=== PATIENT | male | born 1960 | race Caucasian/White ===

== ENCOUNTER 2020-01-08 10:07 | Emergency (ER) | payer OTHER, SELFPAY ==
--- NOTE | ~2020-01-08 | XR_ITS ---
EXAMINATION: XR hand RT 2V DATE: 01/08/2020 11:24 INDICATION: Right hand laceration. Foreign body. TECHNIQUE: 2 views of right hand were obtained. COMPARISON: None. FINDINGS: Bone alignment is normal. No fracture. There is mild osteoarthritis of first carpometacarpa l joint, first and second metacarpophalangeal joints, and most of the interphalangeal joints. There i s moderate osteoarthritis of second distal interphalangeal joint. No radiopaque foreign body. IMPRESSION: 1. No radiopaque foreign body. 2. Polyarticular osteoarthritis. Reviewed, dictated and finalized at location A.
[2020-01-08 10:09] VITALS: BP 138/91; PULSE 82; RESP 18; TEMP 36.8; O2SAT 95
--- NOTE | 2020-01-08 11:09 | ED.GENADULT ---
HPI - General Adult General Chief complaint: Wound/Laceration <VIMAL Crandall Last Filed: 01/08/20 20:17> Stated complaint: hand lac <VIMAL Crandall Last Filed: 01/08/20 20:17> Time Seen by Provider: 01/08/20 11:08 <VIMAL Crandall Last Filed: 01/08/20 20:17> Source: patient and family <VIMAL Crandall Last Filed: 01/08/20 20:17> Limitations: no limitations <VIMAL Crandall Last Filed: 01/08/20 20:17> History of Present Illness HPI narrative: Patient is here for repair of the laceration to his right hand. He was working with some windowpane glass that broke in the trash and cut a very straight laceration through his glove and through the back of his hand. Bleeding is stopped, he is not on any blood thinners. His last tetanus was 3 years ago. He has full range of motion of his fingers. <VIMAL Crandall Last Filed: 01/08/20 20:17> Onset (ago): minute(s) <VIMAL Crandall Last Filed: 01/08/20 20:17> Location: right (right hand) <VIMAL Crandall Last Filed: 01/08/20 20:17> Associated symptoms: denies other symptoms <VIMAL Crandall Last Filed: 01/08/20 20:17> Related Data Home medications: Home Medications Medication Instructions Recorded Confirmed amoxicillin-pot clavulanate 1 tablet PO BID 01/08/20 01/08/20 omega-3 fatty acids-fish oil 1 cap PO DAILY 01/08/20 01/08/20 <VIMAL Crandall Last Filed: 01/08/20 20:17> Allergies/adverse reactions: Allergies Allergy/AdvReac Type Severity Reaction Status Date / Time No Known Allergies Allergy Verified 01/08/20 10:21 <VIMAL Crandall Last Filed: 01/08/20 20:17> Review of Systems Review of Systems: All systems reviewed & are unremarkable except as noted in HPI and below (on Amoxicillin for sinus infection) <Jessica Duque PA-C - Last Filed: 01/08/20 20:17> [facility] Social History Social History: Social History (Updated 01/08/20 @ 11:20 by Jessica Duque PA-C) Smoking status: Never smoker <Jessica Duque PA-C - Last Filed: 01/08/20 20:17> Exam Const: General: no acute distress and alert <Jessica Duque PA-C - Last Filed: 01/08/20 20:17> Orientation/consciousness: patient oriented x3 <Jessica Duque PA-C - Last Filed: 01/08/20 20:17> HENMT: Head: normal to inspection <Jessica Duque PA-C - Last Filed: 01/08/20 20:17> Eyes: Pupils: Equal, round and reactive pupils present <Jessica Duque PA-C - Last Filed: 01/08/20 20:17> Resp: Effort & Inspection: normal respiratory effort <Jessica Duque PA-C - Last Filed: 01/08/20 20:17> Cardio: Rate: regular rate <Jessica Duque PA-C - Last Filed: 01/08/20 20:17> Rhythm: regular rhythm <Jessica Duque PA-C - Last Filed: 01/08/20 20:17> Skin: General skin exam: normal color <Jessica Duque PA-C - Last Filed: 01/08/20 20:17> Extrem: Right upper extremity: full ROM, normal capillary refill and Extremity exam: right hand tendon exam normal, normal ROM of fingers and laceration (4 cm linear lac above fingers 1 & 2.) dorsal aspect linear, involving subcutaneous tissue, with motor nerve function intact and with sensation intact <Jessica Duque PA-C - Last Filed: 01/08/20 20:17> Psych: Mental Status: mental status grossly normal <Jessica Duque PA-C - Last Filed: 01/08/20 20:17> Course Vital Signs Vital signs: Vital Signs Temperature 36.8 C 01/08/20 10:09 Pulse Rate 82 01/08/20 10:09 Respiratory Rate 18 01/08/20 10:09 Blood Pressure 138/91 H 01/08/20 10:09 Pulse Oximetry 95 01/08/20 10:09 Temperature 36.8 C 01/08/20 10:09 Pulse Rate 82 01/08/20 10:09 Respiratory Rate 18 01/08/20 10:09 Blood Pressure 138/91 H 01/08/20 10:09 Pulse Oximetry 95 01/08/20 10:09 <VIMAL Crandall Last Filed: 01/08/20 20:17> Vital Signs Temperature 36.8 C 01/08/20 10:09 Pulse Rate 82
== END 2020-01-08 12:55 | disposition home or self-care (01) ==
PROVIDERS: Emergency Provider Emergency Medicine; PCP Internal Medicine
DX: S61.411A Laceration without foreign body of right hand, initial encounter (principal); W25.XXXA Contact with sharp glass, initial encounter
CPT/HCPCS: 12002; 73120; 99283